=== PATIENT | female | born 1995 | race African-American/Black ===

== ENCOUNTER 2016-12-08 14:40 | Emergency (ER) | payer MEDICAID ==
[~2016-12-08] VITALS: Ht 165.1 cm; Wt 55.0 kg
[2016-12-08] MEDS ORDERED: METHYLPREDNISOLONE SOD SUCC 125 MG/2 ML VIAL IV ONE (15:45)
[2016-12-08 18:16] VITALS: BP 139/75
== END 2016-12-08 20:03 | disposition home or self-care (01) ==
LOC: ER 15:02
DX: T78.1XXA Other adverse food reactions, not elsewhere classified, initial encounter (principal); T78.3XXA Angioneurotic edema, initial encounter; Z91.010 Allergy to peanuts; Z91.018 Allergy to other foods; X58.XXXA Exposure to other specified factors, initial encounter
CPT/HCPCS: 96374; 99284; J2930; J7030; Z7610